=== PATIENT | female | born 1980 | race Caucasian/White ===

== ENCOUNTER 2019-09-19 21:25 | Emergency (ER) | payer OTHER ==
[2019-09-19 22:12] LABS: ABSOLUTE EOSINOPHILS # (AUTO) 0.1 10^3/uL (0.0-0.6); ABSOLUTE LYMPHOCYTES (AUTO) 1.8 10^3/uL (0.5-4.7); ABSOLUTE MONOCYTES (AUTO) 0.5 10^3/uL (0.1-1.4); ABSOLUTE NEUT (AUTO) 5.9 10^3/uL (1.7-8.2); BASOPHILS % (AUTO) 0.5 % (0-2); EOSINOPHILS % (AUTO) 0.8 % (0-6); HEMATOCRIT 38.1 % (36.0-47.0); HEMOGLOBIN 13.6 g/dL (12.0-15.5); LYMPHOCYTES % (AUTO) 21.4 % (13-45); MEAN CORPUSCULAR HEMOGLOBIN 31.8 pg (27.0-33.4); MEAN CORPUSCULAR HGB CONC 35.7 g/dL (32.0-36.0); MEAN CORPUSCULAR VOLUME 89 fl (80-97); MONOCYTES % (AUTO) 5.5 % (3-13); PLATELET COUNT 250 10^3/uL (150-450); RED BLOOD COUNT 4.27 10^6/uL (3.72-5.28); RED CELL DISTRIBUTION WIDTH 12.6 % (11.5-14.0); SEGMENTED NEUTROPHILS % (AUTO) 71.8 % (42-78); TOTAL CELLS COUNTED % (AUTO) 100 %; WHITE BLOOD COUNT 8.2 10^3/uL (4.0-10.5)
[2019-09-19 22:26] LABS: ALBUMIN 4.5 g/dL (3.5-5.0); ALKALINE PHOSPHATASE 66 U/L (38-126); ANION GAP 9 (5-19); ASPARTATE AMINO TRANSFERASE 21 U/L (14-36); BILIRUBIN,DIRECT 0.2 mg/dL (0.0-0.4); BILIRUBIN,TOTAL 0.5 mg/dL (0.2-1.3); BLOOD UREA NITROGEN 22 mg/dL (7-20); CALCIUM 9.4 mg/dL (8.4-10.2); CARBON DIOXIDE 27 mmol/L (22-30); CHLORIDE 100 mmol/L (98-107); CREATINE KINASE 73 U/L (30-135); GLUCOSE 96 mg/dL (75-110); POTASSIUM 4.1 mmol/L (3.6-5.0); TOTAL PROTEIN 7.9 g/dL (6.3-8.2)
[2019-09-19 22:38] LABS: CREATINE KINASE MB 1.31 ng/mL (<4.55); TROPONIN I < 0.012 ng/mL
--- NOTE | 2019-09-19 22:52 | ER Document Report ---
ED General - General Chief Complaint: Chest Tightness Stated Complaint: CHEST DISCOMFORT Time Seen by Provider: 09/19/19 22:22 - HPI Notes: Patient is a 39-year-old female who presents to the emergency department for evaluation of chest pain. She states all day she felt "shaky" and just weak. She was doing some work outside in the yard. She came in, fix dinner. She was cleaning with a new dry cleaner hand. She states suddenly she developed a sharp midsternal chest pain and felt very short of breath. She got diaphoretic. She really cannot tell me how long her symptoms lasted. Her pain was initially sharp, now she states she just has a soreness. She denies any difficulty breathing at this time. She has never had anything similar. - Related Data Allergies/Adverse Reactions: No Known Allergies Allergy (Unverified 09/19/19 21:58) Home Medications: None Past Medical History - General Information source: Patient - Social History Smoking Status: Never Smoker Chew tobacco use (# tins/day): No Frequency of alcohol use: None Drug Abuse: None Family History: Other - Crohn's disease, dementia Patient has suicidal ideation: No Patient has homicidal ideation: No - Medical History Medical History: Negative Past Surgical History: Reports: Hx Section - X4 Review of Systems - Review of Systems Constitutional: See HPI Cardiovascular: See HPI Respiratory: See HPI -: Yes All other systems reviewed and negative Physical Exam - Vital signs Vitals: Temp Pulse Resp BP Pulse Ox 99.0 F 103 H 17 136/85 H 98 09/19/19 21:49 09/19/19 21:49 09/19/19 21:49 09/19/19 21:49 09/19/19 21:49 - Notes Notes: Vital signs reviewed, please refer to chart. Head is normocephalic, atraumatic. Pupils equal round, reactive to light. Neck is supple without meningismus. Hea rt is regular rate and rhythm. Lungs are clear to auscultation bilaterally. Abdomen is soft, nontender, normoactive bowel sounds throughout. Extremities without cyanosis, clubbing. Posterior calves are nontender. Peripheral pulses are equal. Skin is warm and dry, but hair is damp. Patient is awake, alert, neurological exam is nonfocal. Course - Re-evaluation Re-evalutation: 09/19/19 22:51 Patient presents emergency department for evaluation. Laboratory investigations were obtained. EKG and chest x-ray ordered. Initial labs are unremarkable. Patient's pain is certainly not typical, but given her severe diaphoresis and associated symptoms, I am concerned about the possibility of ACS. Repeat troponin is ordered. Patient is stable at this time, we will continue to monitor. 09/20/19 00:26 Patient had one further episode of palpitations, but her heart rate was in the 90s at that time. On evaluation at this time her heart rate is 70. She is 96% on room air, her blood pressure is 116/74, respirations are 12 and unlabored. This patient does not have any risk factors for DVT or PE, she is not tachycardic, her chest pain would be atypical for anginal pain. Awaiting second troponin. If it is negative as expected, patient will be discharged to home with close follow-up with her primary care provider. She is told that if her symptoms return she should return to the ER for further evaluation. She voiced understanding. - Vital Signs Vital signs: Temp Pulse Resp BP Pulse Ox 99.0 F 103 H 17 136/85 H 98 09/19/19 21:49 09/19/19 21:49 09/19/19 21:49 09/19/19 21:49 09/19/19 22:03 - Laboratory Result Diagrams: 09/19/19 21:41 09/19/19 21:41 Laboratory results interpreted by me: 09/19/19 21:41 Sodium 136.1 L BUN 22 H - Diagnostic Test Radiology reviewed: Reports reviewed Radiology results interpreted by me: 09/20/19 00:27 Chest X-Ray 09/19/19 22:03 IMPRESSION: No evidence of active intrathoracic disease. Lungs of low volume but clear - EKG Interpretation by Me Additional EKG results interpreted by me: 09/20/19 00:28 Sinus mechanism with a rate of 77 bpm. Normal axis intervals. No acute ST changes concerning for ischemia or infarction. Discharge - Discharge Clinical Impression: Chest pain Qualifiers: Chest pain type: unspecified Qualified Code(s): R07.9 - Chest pain, unspecified Condition: Stable Disposition: HOME, SELF-CARE Instructions: Chest Pain of Unclear Cause ([facility]) Additional Instructions: No clear cause is found for your chest pain or symptoms today. Please follow-up closely with your primary care provider this week. If your pain returns, or you develop worsening or new concerning symptoms of any sort, please return immediately to the emergency department for reevaluation.
--- NOTE | 2019-09-19 23:06 | RADIOLOGY REPORT (SQ) ---
CLINICAL INDICATION: CHEST TIGHTNESS. TECHNIQUE: A single portable AP view was obtained of the chest at 2245 hours. COMPARISON: None. FINDINGS: The cardiomediastinal silhouette is top normal. The lungs are grossly clear. No evidence of effusion or pneumothorax. The visualized bones are unremarkable. IMPRESSION: No evidence of active intrathoracic disease. Lungs of low volume but clear
[2019-09-20 00:51] VITALS: BP 110/73
--- NOTE | 2019-09-20 06:26 | EKG REPORT ---
SEVERITY:- BORDERLINE ECG - SINUS RHYTHM INFERIOR Q WAVES, PROBABLY NORMAL VARIATION : Confirmed by: Bear Jim MD 20-Sep-2019 06:26:37
== END 2019-09-20 01:10 | disposition home or self-care (01) ==
LOC: ER 21:25
DX: R07.9 Chest pain, unspecified (principal); R53.1 Weakness; R06.02 Shortness of breath; R61 Generalized hyperhidrosis; R00.2 Palpitations
CPT/HCPCS: 36415; 71045; 80053; 82550; 82553; 84484; 85025; 93005; 93010; 99285